=== PATIENT | male | born 1970 | race Caucasian/White ===

== ENCOUNTER 2019-07-11 16:07 | Inpatient (IN) ==
[2019-07-11] MEDS ORDERED: KETOROLAC 30 MG/ML VIAL IV STA (16:25)
[2019-07-11] MEDS ORDERED: ACETAMINOPHEN 325 MG TAB PO STA (16:25)
[2019-07-11] MEDS ORDERED: MoRPHine SULFATE 4 MG/ML 1 ML CARP\\VIAL IV STA (16:25)
[2019-07-11] MEDS ORDERED: SODIUM CHLORIDE 0.9% 1000ML 1,000 ML IV SCH (16:30)
[2019-07-11 16:50] LABS: Basophils # (auto) 0.03 K/uL (0-0.2); Basophils % (auto) 0.4 %; Eosinophils % (auto) 1.3 %; Hematocrit (blood only) 42.7 % (42-52); Immature Granulocytes # (auto) 0.01 K/uL (0.00-0.02); Immature Granulocytes % (auto) 0.1 %; Lymphocytes # (auto) 1.68 K/uL (1.2-3.4); Lymphocytes % (auto) 22.3 %; Mean Corpuscular Hemoglobin 33.1 pg (25-34); Mean Corpuscular Hgb Conc 35.1 g/dL (32-36); Mean Corpuscular Volume 94.3 fL (80-100); Mean Platelet Volume 9.9 fL (7.4-10.4); Monocytes # (auto) 0.46 K/uL (0.11-0.59); Monocytes % (auto) 6.1 %; Neutrophils # (auto) 5.25 K/uL (1.4-6.5); Neutrophils % (auto) 69.8 %; Platelet Count 230 K/uL (130-400); RDW Coefficient of Variation 13.1 % (11.5-14.5); RDW Standard Deviation 45.4 fL (36.4-46.3); Red Blood Count 4.53 M/uL (4.7-6.1); White Blood Count 7.53 K/uL (4.8-10.8)
[2019-07-11 17:07] LABS: iSTAT Creatinine 0.8 mg/dl (0.6-1.3); iSTAT Hemoglobin 14.6 g/dl (14.0-18.0); iSTAT Ionized Calcium 1.15 mmol/l (1.12-1.32); iSTAT Potassium 3.8 mmol/L (3.3-5.0)
[2019-07-11 17:09] LABS: BUN Creatinine Ratio 13.9 (10-20); Calcium 8.8 mg/dl (8.5-10.1); Creatinine Clr Calc Pharmacy 121.1 ml/min; Est GFR (African American) 119.7; Est GFR (Non-African American) 103.3; Potassium 3.8 mmol/L (3.5-5.1)
[2019-07-11] MEDS ORDERED: IOVERSOL 100ml IV PRN (17:36)
[2019-07-11] MEDS ORDERED: fentaNYL citrate 100 MCG/2 ML VIAL IV STA (17:49)
[2019-07-11] MEDS ORDERED: OXYCODONE HCL IR 5 MG TAB (IMMEDIATE RELEASE) PO STA (17:49)
--- NOTE | 2019-07-11 17:53 | CT Scan Report ---
CT soft tissue neck wo/w con CLINICAL HISTORY: 49 years-old Male presenting with L sided parotid/ear mass; left ear swelling, site of interest marked. TECHNIQUE: Multidetector CT of the neck was performed before and after the administration of intraven ous contrast. IV contrast: 90 mL of Optiray 320. One or more dose lowering techniques were used consi stent with the principles of ALARA (as low as reasonably achievable), including automatic exposure co ntrol, mA or kV adjustment to individual patient size, and/or use of iterative reconstruction. COMPARISON: Correlation made to MR of the cervical spine from [address] head from 02/21/2018. CT DOSE (mGy.cm): The estimated cumulative dose is 710.40 mGycm. 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 Anterior cervical fusion hardware. At the site of clinical concern, vague region of swelling within the posterior aspect of the left par ietal gland which is heterogeneously hypoechoic and measures approximately 2 cm (series 5 image 76) t his region and demonstrates enhancement and has a multicystic appearance though poorly delineated. Th ere is also a deeper component measuring 1.4 cm which has a slightly more hypodense appearance and ma y potentially emanate from the posterior aspect of the deep lobe of the left parotid gland tracking t owards the skull base (series 5 image 64). Presumably this is contiguous with the more superficial ab normality by thin tract. Trace fluid is noted within the left mastoid air cells, which appear eroded at the interface with the deep portion of the multicystic abnormality. There is also a lucent lesion associated along the deep aspect of the left mastoid air cells measuring 2.3 cm in diameter (series 3 image 55). This demonstrates does not demonstrate convincing enhancement and correlates with a prior dominant mastoid air cell on head CT from 2018. Borderline enlargement of a left cervical lymph node at the level of the hyoid bone measuring 11 mm a nd axial long axis. Several additional smaller bilateral cervical lymph nodes are noted, nonspecific. Mild mucosal thickening in the right maxillary sinus. Orbits normal. Limited intracranial evaluation within normal limits. Aerodigestive tract patent without suspicious nodular enhancement or effacement . Vasculature grossly patent. Trace atherosclerosis. Lung apices clear. ACDF of C6-7. Lucent lesion i n the T3 vertebral body (series 5 image 120), new from prior exam. This erodes the posterior cortex o f the vertebral body. IMPRESSION: 1. 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 Multic ystic appearing mass in the left parotid gland with extension into the skull base and subtle erosion at the mastoid segment of the left temporal bone. Presumably partial opacification of left mastoid ai r cells relates to osseous erosion. Differential considerations include adenoid cystic carcinoma, muc osal epidermoid carcinoma, or malignant mixed salivary gland tumor, or metastatic lesion. 2. Erosive lytic lesion in the C3 vertebral body highly concerning for osseous metastatic disease. 3. PET/CT should be considered for further evaluation as well as oncologic referral. Ultrasound-guid ed fine-needle aspiration of the left parotid gland will likely be necessary on a nonurgent outpatien t basis after oncologic consultation. 4. Borderline suspicious left cervical lymph node at the level of the hyoid bone. The report will be called/faxed according to standard departmental protocol. ACT 112: Negative or not required by law. Electronically signed by: Chandler Walter M.D. 07/11/2019 5:52 PM
--- NOTE | 2019-07-11 17:57 | Emergency Department Note ---
Entered by Roberto Best acting as a scribe for History of Present Illness General Chief complaint: Facial Injury/Pain Stated complaint: HEADACHE Time Seen by Provider: 07/11/19 16:15 Source: patient Limitations: no limitations History of Present Illness Onset (ago): month(s) 6 Location: neck Pain Consistency: + constant Maximum Pain Intensity: 9 Quality: + constant Associated symptoms: + other (lost hearing in left ear) The patient is a 49 year-old white male w/ PMHx Frederick's Palsy, Lyme disease, who presents to the ED w/ CC of left-sided neck pain beginning 6 months ago. The patient states his neck swelling has gotten worse in the past week. The patient states he was scheduled for a CT scan tomorrow. He states his neck pain is a lot worse today. He states he lost his hearing in his left ear about a week ago. He notes he has constant pain, but states the severity of the pain goes up and down. He states nothing makes the pain better. He notes he smokes. He states he has been taking medications at home that were prescribed, but states it has not helped. He states he has been getting blood out of his left ear for the past 4 days. Home Medications Home Medications Medication Instructions Recorded Confirmed Type ciprofloxacin 0.3 %-dexamethasone 4 drops OT BID #7.5 ml 07/03/19 07/11/19 Rx 0.1 % ear drops,suspension meloxicam 15 mg PO DAILY 07/11/19 07/11/19 History ondansetron HCl [Zofran] 4 mg PO TID PRN 5 Days #15 tab 07/11/19 Rx oxycodone [Roxicodone] 5 mg PO Q8H PRN #15 tab 07/11/19 Rx Allergies Allergy/AdvReac Type Severity Reaction Status Date / Time varenicline Allergy Intermediate RASH Verified 07/11/19 16:32 Past Med/Surg History Medical History Patient denies significant medical history Smoker Surgical History History of incision and drainage RIGHT BUTTOCK Hx of appendectomy Hx of cervical discectomy Hx of hernia repair umbical Hx of shoulder surgery right and left Family History Mother Family history of diabetes mellitus Other FHx: heart disease No family history of bleeding disorder Social History Preferred Language: Somali Communication Ability: Effective Drug Abuse Treatment Specialist Required: No Beliefs That Will Affect Care: None Current Living Situation: Family Current Living Situation Comment: dtr and salvatore Feels Safe at Home: Yes Smoking Status: Current every day smoker Tobacco Type: cigarettes ; Age Started Using Tobacco: 18 ; packs per day: 1 ; Cigarettes Per Day: 21 ; Second Hand Exposure: No ; Tobacco Cessation Education Requested by Patient: No Hx Alcohol Use: Yes Alcohol Intake Frequency: Weekly Hx Substance Use: Yes substance use type: does not use Review of Systems See HPI for pertinent positives & negatives. and A total of 10 systems reviewed and were otherwise negative Physical Exam Vital Signs Vital Signs - 24 hr 07/11/19 16:09 07/11/19 17:44 07/11/19 18:00 Temperature 36.6 C Temperature Source Oral Pulse Rate 99 H 84 71 Pulse Rate [Apical] Pulse Rate from SpO2 Sensor 72 Pulse Strength Normal Respiratory Rate 18 20 16 Respiratory Effort / Characteristics Non-Labored Spontaneous Respiratory Depth Normal Respiratory Pattern Blood Pressure 175/116 H 176/120 H Blood Pressure [Right Arm] Blood Pressure Mean 135 129 Blood Pressure Mean [Right Arm] Blood Pressure Position Sitting Pulse Oximetry 99 100 94 Oxygen Delivery Method Room Air Room Air Room Air Sepsis Recent Fever Within 48 Hours No Sepsis New/Unexplained Change in Mental Status No Sepsis Action Taken by Nursing No Action Required 07/11/19 18:18 07/11/19 18:25 07/11/19 18:30 Temperature Temperature Source Pulse Rate 89 79 Pulse Rate [Apical] 84 Pulse Rate from SpO2 Sensor 86 79 Pulse Strength Respiratory Rate 20 20 18 Respiratory Effort / Characteristics Non-Labored Spontaneous Respiratory Depth Normal Respiratory Pattern Regular Blood Pressure 176/114 H Blood Pressure [Right Arm] 176/120 H Blood Pressure Mean 122 Blood Pressure Mean [Right Arm] 138 Blood Pressure Position Pulse Oximetry 96 98 99 Oxygen Delivery Method Room Air Room Air Sepsis Recent Fever Within 48 Hours Sepsis New/Unexplained Change in Mental Status Sepsis Action Taken by Nursing 07/11/19 19:00 07/11/19 19:30 07/11/19 20:00 Temperature Temperature Source Pulse Rate 85 86 67 Pulse Rate [Apical] Pulse Rate from SpO2 Sensor 85 86 67 Pulse Strength Respiratory Rate 31 H 14 10 L Respiratory Effort / Characteristics Respiratory Depth Respiratory Pattern Blood Pressure 173/124 H 188/126 H 171/107 H Blood Pressure [Right Arm] Blood Pressure Mean 137 139 120 Blood Pressure Mean [Right Arm] Blood Pressure Position Pulse Oximetry 100 99 95 Oxygen Delivery Method Room Air Room Air Room Air Sepsis Recent Fever Within 48 Hours Sepsis New/Unexplained Change in Mental Status Sepsis Action Taken by Nursing GENERAL: Uncomfortable in appearance, well nourished, NAD, non-toxic. EYE EXAM: Normal conjunctiva. PERRL, no anisocoria and EOM's grossly intact w/o pain. OROPHARYNX: Moist mucus membranes. Poor dentition. No exudate, posterior pharynx is clear, no tonsillar/uvular deviation or swelling. EARS: Likely perforated tympanic membrane left side, with possible mass. Right TM slightly retracted but without any erythema or effusion. NECK: Supple, no nuchal rigidity, no adenopathy, non-tender. no signs of meningismus. 4 x 3 cm area of swelling over the left lateral neck. No cellulitic change. No fluctuance. FROM. Good neck extension and flexion. Non-stridulous. No submandibular sublingual or submental swelling. LUNGS: Clear to auscultation. Normal chest wall mechanics. HEART: NSR, no MRG. ABDOMEN: Abdomen soft, non-tender, normo-active bowel sounds, no masses, no rebound or guarding. BACK: No CVA TTP. SKIN: No rashes and no bruising. UPPER EXTREMITIES: Upper extremities are grossly normal. NEURO EXAM: A&O x3, cranial nerves II-XII grossly intact, normal speech, moves all 4 extremities on command w/o issue. Course Course 1617: The patient was evaluated in room C4, and a complete history and physical examination were performed. []: Upon reevaluation, the patient appeared to have improvement of his symptoms. I discussed today's findings with him. He verbalized agreement of the treatment plan. The patient was discharged home. Administered Medications Gabapentin (Neurontin) 300 mg PO TID DANIEL Stop: 08/10/19 21:59 Last Admin: 07/12/19 07:57 Dose: 300 mg Documented by: [id number] Admin: 07/11/19 22:19 Dose: 300 mg Documented by: [id number] Hydromorphone HCl (Dilaudid) 1 mg IV Q1H PRN PRN Reason: Pain Stop: 07/25/19 21:33 Last Admin: 07/12/19 09:31 Dose: 1 mg Documented by: [id number] Miscellaneous (Remove Nicoderm Patch) 1 ea N/A DAILY@[id number] [facility] Stop: 08/11/19 08:58 Last Admin: 07/12/19 07:53 Dose: Not Given Documented by: [id number] Nicotine (Nicoderm Cq) 21 mg TD QAM [facility] Stop: 08/11/19 08:59 Last Admin: 07/12/19 07:54 Dose: Not Given Documented by: [id number] Discontinued Medications Acetaminophen (Tylenol) 650 mg PO NOW STA Stop: 07/11/19 16:26 Last Admin: 07/11/19 17:13 Dose: 650 mg Documented by: [id number] Ciprofloxacin/Dexamethasone (Ciprodex Otic) 4 drops OT BID [facility] Stop: 08/10/19 21:59 Last Admin: 07/12/19 07:57 Dose: 4 drops Documented by: [id number] Admin: 07/11/19 22:19 Dose: 4 drops Documented by: [id number] Fentanyl Citrate (Fentanyl Citrate) 100 mcg IV NOW STA Stop: 07/11/19 17:50 Last Admin: 07/11/19 18:04 Dose: 100 mcg Documented by: [id number] Hydromorphone HCl (Dilaudid) 1 mg IV NOW STA Stop: 07/11/19 18:25 Last Admin: 07/11/19 18:48 Dose: 1 mg Documented by: [id number] Hydromorphone HCl (Dilaudid) 1 mg IV Q15M PRN PRN Reason: Pain Stop: 07/25/19 19:08 Last Admin: 07/11/19 19:42 Dose: 1 mg Documented by: [id number] Hydromorphone HCl (Dilaudid) 1 mg IV Q2H PRN PRN Reason: Pain Stop: 07/25/19 21:33 Last Admin: 07/12/19 07:49 Dose: 1 mg Documented by: [id number] Admin: 07/12/19 05:41 Dose: 1 mg Documented by: [id number] Admin: 07/12/19 03:42 Dose: 1 mg Documented by: [id number] Admin: 07/11/19 23:29 Dose: 1 mg Documented by: [id number] Sodium Chloride (Nss 1000ml) 1,000 mls @ 999 mls/hr IV .Q1H1M DANIEL Stop: 07/11/19 17:30 Last Infusion: 07/11/19 18:17 Dose: 0 mls/hr Documented by: [id number] Admin: 07/11/19 17:09 Dose: 999 mls/hr Documented by: [id number] Ioversol (Optiray 320 100ml) 90 ml IV ONCE PRN PRN Reason: Interaction Checking Stop: 07/15/19 17:35 Last Admin: 07/11/19 17:36 Dose: 90 ml Documented by: [id number] Ketorolac Tromethamine (Toradol) 30 mg IV NOW STA Stop: 07/11/19 16:26 Last Admin: 07/11/19 17:12 Dose: 30 mg Documented by: [id number] Ketorolac Tromethamine (Toradol) 30 mg IV NOW STA Stop: 07/12/19 09:27 Last Admin: 07/12/19 09:31 Dose: 30 mg Documented by: [id number] Morphine Sulfate (Morphine Sulfate) 4 mg IV NOW STA Stop: 07/11/19 16:26 Last Admin: 07/11/19 17:10 Dose: 4 mg Documented by: [id number] Ondansetron HCl (Zofran) 4 mg IV NOW STA Stop: 07/11/19 19:11 Last Admin: 07/11/19 19:42 Dose: 4 mg Documented by: [id number] Oxycodone HCl (Roxicodone Immediate Rel) 5 mg PO NOW STA Stop: 07/11/19 17:50 Last Admin: 07/11/19 18:04 Dose: 5 mg Documented by: [id number] Oxycodone HCl (Roxicodone Immediate Rel 5mg Home Pack) 1 homepack PO UD ONE Stop: 07/11/19 18:25 Last Admin: 07/11/19 18:48 Dose: 1 homepack Documented by: [id number] Medical Decision Making Differential Diagnosis Differential diagnosis includes etiologies such as viral syndrome, tonsillitis, streptococcal pharyngitis, mononucleosis, peritonsillar abscess, retropha ryngeal abscess, otitis, pneumonia, influenza, as well as others were entertained. Medical Records Attestation: I reviewed the patient's medical records. The patient was seen by ENT on 06/29. Patient was pending outpatient scans and fine-needle aspirate. Patient believes that he was supposed to get a scan of the neck but was unsure as to anything else. Home Medications Current Medication List: was personally reviewed by me Laboratory Data Attestation: I reviewed the patient's lab results. Result diagrams: 07/11/19 16:37 07/11/19 16:37 Lab Results 07/11/19 07/11/19 07/11/19 Range/Units 16:37 16:37 16:54 WBC 7.53 (4.8-10.8) K/uL RBC 4.53 L (4.7-6.1) M/uL Hgb 15.0 (14.0-18.0) g/dL POC Hgb 14.6 (14.0-18.0) g/dl Hct 42.7 (42-52) % POC Hct 43 (42-52) % MCV 94.3 (80-100) fL MCH 33.1 (25-34) pg MCHC 35.1 (32-36) g/dL RDW Std Deviation 45.4 (36.4-46.3) fL RDW Coeff of Kylah 13.1 (11.5-14.5) % Plt Count 230 (130-400) K/uL MPV 9.9 (7.4-10.4) fL Immature Gran % (Auto) 0.1 % Neut % (Auto) 69.8 % Lymph % (Auto) 22.3 % Burnett % (Auto) 6.1 % Eos % (Auto) 1.3 % Baso % (Auto) 0.4 % Immature Gran # (Auto) 0.01 (0.00-0.02) K/uL Neut # (Auto) 5.25 (1.4-6.5) K/uL Lymph # (Auto) 1.68 (1.2-3.4) K/uL Burnett # (Auto) 0.46 (0.11-0.59) K/uL Eos # (Auto) 0.10 (0-0.5) K/uL Baso # (Auto) 0.03 (0-0.2) K/uL POC Sodium 137 (135-144) mmol/L Sodium 136 (136-145) mmol/L POC Potassium 3.8 (3.3-5.0) mmol/L Potassium 3.8 (3.5-5.1) mmol/L POC Chloride 101 (101-112) mmol/L Chloride 104 (98-107) mmol/L Carbon Dioxide 26 (21-32) mmol/L POC Total CO2 27 (24-31) mEq/l Anion Gap 6.0 (3-11) POC Anion Gap 13.0 L (16-25) mmol/L POC BUN 12 (7-18) mg/dl BUN 12 (7-18) mg/dl Creatinine 0.86 (0.6-1.4) mg/dl POC Creatinine 0.8 (0.6-1.3) mg/dl Est Cr Clr Drug Dosing 121.1 ml/min Est GFR ( Amer) 119.7 Est GFR (Non-Af Amer) 103.3 BUN/Creatinine Ratio 13.9 (10-20) Glucose 79 (70-99) mg/dl POC Glucose (other) 78 (70-99) mg/dl Calcium 8.8 (8.5-10.1) mg/dl POC Ioniz Calcium Pj 1.15 (1.12-1.32) mmol/l Imaging Data Radiologist's Impression: Radiology results as stated below per my review and the radiologist's interpretation: CT soft tissue neck wo/w con CLINICAL HISTORY: 49 years-old Male presenting with L sided parotid/ear mass; left ear swelling, site of interest marked. TECHNIQUE: Multidetector CT of the neck was performed before and after the administration of intravenous contrast. IV contrast: 90 mL of Optiray 320. One or more dose lowering techniques were used consistent with the principles of ALARA (as low as reasonably achievable), including automatic exposure control, mA or kV adjustment to individual patient size, and/or use of iterative reconstruction. COMPARISON: Correlation made to MR of the cervical spine from [address] head from 02/21/2018. CT DOSE (mGy.cm): The estimated cumulative dose is 710.40 mGycm. 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 Anterior cervical fusion hardware. At the site of clinical concern, vague region of swelling within the posterior aspect of the left parietal gland which is heterogeneously hypoechoic and measures approximately 2 cm (series 5 image 76) this region and demonstrates enhancement and has a multicystic appearance though poorly delineated. There is also a deeper component measuring 1.4 cm which has a slightly more hypodense appearance and may potentially emanate from the posterior aspect of the deep l obe of the left parotid gland tracking towards the skull base (series 5 image 64). Presumably this is contiguous with the more superficial abnormality by thin tract. Trace fluid is noted within the left mastoid air cells, which appear eroded at the interface with the deep portion of the multicystic abnormality. There is also a lucent lesion associated along the deep aspect of the left mastoid air cells measuring 2.3 cm in diameter (series 3 image 55). This demonstrates does not demonstrate convincing enhancement and correlates with a prior dominant mastoid air cell on head CT from 2018. Borderline enlargement of a left cervical lymph node at the level of the hyoid bone measuring 11 mm and axial long axis. Several additional smaller bilateral cervical lymph nodes are noted, nonspecific. Mild mucosal thickening in the right maxillary sinus. Orbits normal. Limited intracranial evaluation within normal limits. Aerodigestive tract patent without suspicious nodular enhancement or effacement. Vasculature grossly patent. Trace atherosclerosis. Lung apices clear. ACDF of C6-7. Lucent lesion in the T3 vertebral body (series 5 image 120), new from prior exam. This erodes the posterior cortex of the vertebral body. IMPRESSION: 1. 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 Multicystic appearing mass in the left parotid gland with extension into the skull base and subtle erosion at the mastoid segment of the left temporal bone. Presumably partial opacification of left mastoid air cells relates to osseous erosion. Differential considerations include adenoid cystic carcinoma, mucosal epidermoid carcinoma, or malignant mixed salivary gland tumor, or metastatic lesion. 2. Erosive lytic lesion in the C3 vertebral body highly concerning for osseous metastatic disease. 3. PET/CT should be considered for further evaluation as well as oncologic referral. Ultrasound-guided fine-needle aspiration of the left parotid gland will likely be necessary on a nonurgent outpatient basis after oncologic consultation. 4. Borderline suspicious left cervical lymph node at the level of the hyoid bone. The report will be called/faxed according to standard departmental protocol. ACT 112: Negative or not required by law. Electronically signed by: Chandler Walter M.D. 07/11/2019 5:52 PM Dictated: 07/11/[id number] Transcribed: 07/11/[id number] ECG Data Attestation: I personally reviewed and interpreted this ECG as follows: Indication: + other (neck pain; borderline tachycardia) Rate (beats per minute): 80 Rhythm: + normal sinus ECG Intervals/blocks: + Normal QRS, + Normal QT and + Normal LA ECG [place]: + Normal ECG ST segments: + Normal ST segments Change: no significant change (02/21/19) Blood Pressure Blood Pressure Findings: Elevated blood pressure Blood Pressure Disposition: Referred to patients primary care provider MDM Narrative The patient is a 49 year-old white male w/ PMHx Frederick's Palsy, Lyme disease, who presents to the ED w/ CC of left-sided neck pain beginning 6 months ago. Continuous Cardiac Monitoring: An order was placed for continuous cardiac monitoring. The monitor shows a rate of 99 with a sinus rhythm. Patient was seen and evaluated the bedside. The patient was presented with concern for worsening left-sided neck pain. The patient had been seen in the outpatient setting by ENT due to concern for a parotid and auditory canal mass. Patient does have some swelling but without any cellulitic change or fluctuance over the area. Patient is a smoker. No obvious signs of odontogenic infection. No submental, submandibular or sublingual swelling. Non-stridulous with good range of motion of the neck and no signs of meningismus. Patient did a blood work completed which is unremarkable. CT of the soft tissue neck was obtained. 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 I did briefly speak with 1 of the on-call radiologist in order to discuss how things would p roceed in terms of a fine-needle aspirate. Patient is already scheduled for fine-needle aspirate in terms of order but unsure as to the timeframe as I cannot see when the order is to go through. Only after I got the scans that I noticed that the patient did have additional specific CT scans but given his current findings I believe this is a reasonable start. I did have the embedded case manager talk to the patient in order to help arrange outpatient ENT and oncology follow-up for as soon as possible given his findings. Radiology stated that typically prior to fine-needle aspirate they are referred to ENT or oncology and they will help guide treatment in terms of obtaining a body scan and then fur ther discussion will be about fine-needle aspirate thereafter. The patient again does not have any signs concerning for acute airway issue and the patient is tolerating secretions. The patient's acute problem has been somewhat chronic as he has had greater than 6 months of symptoms but only acutely worsened over the last several days. Patient's EKG and blood work is unremarkable. The patient's pain is improved. The patient will have appointments attempted to be scheduled with ENT and oncology for prompt follow-up. Patient is in agreement plan of care. I counseled patient on smoking cessation for 3 minutes. Treatment options discussed and resources provided. Patient was not receptive. Discharge the patient stated that he still had unbearable pain. The patient has received fentanyl, morphine, Dilaudid without relief in his discomfort. The patient likely does have metastatic malignancy of the head and neck. Medicine service admitted the patient for further pain control and additional work-up. Impression & Plan Malignant tumor of salivary gland, Bone metastases, Encounter for smoking cessation counseling Discharge Plan Visit Data *Final* Discharge Date/Time: 07/11/19 21:18 Chief Complaint: Facial Injury/Pain Stated Complaint: HEADACHE ED Provider: Guanakito Hernandez Discharge Problem: Malignant tumor of salivary gland, Bone metastases, Encounter for smoking cessation counseling Patient Disposition: Admitted As Inpatient Condition: Fair Discharge Instructions Interventions: ED Discharge Assessment Last Done: 07/11/19 21:18 The scribe's documentation has been prepared under my direction and personally reviewed by me in its entirety. I confirm that the note above accurately reflects all work, treatment, procedures, and medical decision making performed by me.
[2019-07-11] MEDS ORDERED: OXYCODONE IR HOME PACK PO ONE (18:24)
[2019-07-11] MEDS ORDERED: HYDROmorphone INJ 1 MG/ML SYRINGE IV STA (18:24)
[2019-07-11] MEDS ORDERED: HYDROmorphone INJ 1 MG/ML SYRINGE IV PRN (19:09)
[2019-07-11] MEDS ORDERED: ONDANSETRON INJ 2 MG/ML 2 ML VIAL IV STA (19:10)
--- NOTE | 2019-07-11 19:34 | History & Physical Report ---
Date of Service July 11, 2019 Assessment & Plan (1) Malignant tumor of salivary gland: Steve Rayo is a 49 year old man who has had progressive symptoms concerning for head and neck cancer. He is here today for extreme pain that started last last night Pain Likely secondary to growing mass which appears to be a metastatic cancer with primary tumor in left parotid gland Patient has been seen by ENT in the outpatient setting who recommended tylenol for pain control which was not enough so he presented to emergency department. Pain likely secondary to compression of local structures as well as trigeminal nerve compression, will treat with dilaudid 1 mg q2h for pain control, 10 mg Decadron to try to decrease swelling and pressure, and gabapentin to try and help with any component of nerve irritation If unable to get adequate pain control with bolus dilaudid may consider transitioning to [facility] Head and Neck Cancer suspected Evaluated by ENT two weeks ago who were concnerned for malignancy based on parotid mass and auditory meatus mass and ordered CT and fine needle aspiration for diagnostic purposes Oncology consulted for pain relief recommendations and to see if any further inpatient management is warranted Decadron to try and decrease local compression from tumor burden and inflammation Smoking Active smoker 30 pack year history Will try to educate on tobacco cessation will order nicotine patch ALcohol use Drinks up to seven drinks a night almost every night Will try to counselor dormitory on alcohol cessation Will order Withdrawal protocol DVT PPx: Lovenox F/E/N: Regular Diet Full code Dispo: Med Surg for pain control (2) Bone metastases: (3) Encounter for smoking cessation counseling: (4) Mass of left parotid gland: History of Present Illness Primary Care Provider: Ceasar Lilly MD Mr. 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 and noticed a lump on the side of his face near his jaw. His Frederick's palsy persisted and he started to have some discomfort. Two weeks ago he went to the ENT who believed he had a mass and he needed to have scan and biopsy. He, is here today for extreme pain that started around 1:30 am this morning woke him up from a sleep. Patient is having the worst pain of his life through his head. He has an obstructed left nares and has been having bleeding from his left ear since ENT looked at it. Hypertension in the past, not on high blood pressure medication, uses medical marijuana for sleep and appetite. Smoker, just over a pack a day started at about 18. Lives with youngest daughter and two children. Has 6-7 drinks a night about seven nights a week. 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 secondary to these. Dr. Lilly is primary doctor. Allergies Allergy/AdvReac Type Severity Reaction Status Date / Time varenicline Allergy Intermediate RASH Verified 07/11/19 16:32 Home Medications Home Medications Medication Instructions Recorded Confirmed Type ciprofloxacin 0.3 %-dexamethasone 4 drops OT BID #7.5 ml 07/03/19 07/11/19 Rx 0.1 % ear drops,suspension meloxicam 15 mg PO DAILY 07/11/19 07/11/19 History ondansetron HCl [Zofran] 4 mg PO TID PRN 5 Days #15 tab 07/11/19 Rx oxycodone [Roxicodone] 5 mg PO Q8H PRN #15 tab 07/11/19 Rx Past Med/Surg History Medical History Patient denies significant medical history Smoker Surgical History History of incision and drainage RIGHT BUTTOCK Hx of appendectomy Hx of cervical discectomy Hx of hernia repair umbical Hx of shoulder surgery right and left Family History Mother Family history of diabetes mellitus Other FHx: heart disease No family history of bleeding disorder Social History Preferred Language: Setswana Communication Ability: Effective 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 Beliefs That Will Affect Care: None Current Living Situation: Family Current Living Situation Comment: dtr and grandkids Feels Safe at Home: Yes Smoking Status: Current every day smoker Tobacco Type: cigarettes ; Age Started Using Tobacco: 18 ; packs per day: 1 ; Cigarettes Per Day: 21 ; Second Hand Exposure: No ; Tobacco Cessation Education Requested by Patient: No Hx Alcohol Use: Yes Alcohol Intake Frequency: Weekly Hx Substance Use: Yes substance use type: does not use Review of Systems Constitutional: + fatigue, + weight loss and + insomnia; no fever and no chills Eyes: + dry eyes and + worsening vision Ear, Nose, Mouth, Throat: + ear pain, + ear discharge (Bloody discharge from left ear since examination), + nasal congestion (Left nares constantly obstructed), + nasal discharge, + facial pain and + neck lump Respiratory: no cough, no dyspnea and no wheezing Cardiovascular: no chest pain, no dyspnea, no palpitations and no edema Gastrointestinal: no abdominal pain, no nausea, no vomiting, no constipation and no diarrhea/loose stools Genitourinary: no dysuria Integumentary: no lesions Physical Exam Physical Exam: Constitutional: Mr Steve Rayo is a 49 year old man appearing stated age in obvious acute distress secondary to head/face pain. Every few minutes grabbing at his jaw ear area on the left. Eyes: EOMMI patient with some facial nerve palsy, unable to close left eye completely ENMT: Erythematous Left TM with bloody discharge present, nares appearing normal, dentition carious, mass palpable around left parotid region by posterior mandible on left, this area is tender to palpation Respiratory: Lungs clear to auscultation bilaterally, no increased work of breathing, no wheezing, stridor Cardiovascular: Regular rate regular rhythm heart sounds dual on auscultation, peripheral pulses intact, no lower limb edema GI: Abdomen soft nontender Neuro: Mild left fifth CN paralysis on exam, No other neurologic deficit detect II-Iv and -XII assessed and intact with possible exception of some increased pain in distribution of trigeminal nerve. Results & Data Vital Signs (Past 12 Hours) Vital Signs Temp Pulse Pulse Resp BP BP Pulse Ox 07/11/19 18:18 84 20 176/120 H 96 07/11/19 17:44 84 20 100 07/11/19 16:09 36.6 C 99 H 18 175/116 H 99 Supervising Physician Co-Signing Physician Notes Patient seen and examined, chart reviewed, case discussed with Dr. Knox and I agree with his assessment and plan as documented above. Briefly, patient is a 49-year-old male with concern for salivary gland malignancy of t he left parotid. He presents today in extreme pain requiring multiple doses of IV pain medication On physical exam he is afebrile, hemodynamically stable, in mild distress secondary to discomfort. Pain comes and shooting waves Skinwarm, no rash HEENTnormocephalic/atraumatic, pupils equal react to light, extraocular muscles intact, moist mucous membranes, neck supple, no JVD, fullness of the left preauricular region with extreme tenderness to palpation Heart+ S1/S2, regular, no murmurs/rubs/gallops LungsCTA Abdomensoft, nontender, nondistended Extremitieswarm, well-perfused Labs and images reviewed. CT of the soft tissue of the neck highly concerning for malignant salivary gland tumor of the left parotid. Multicystic appearing mass in the left parotid gland with extension to the skull base and subtle erosion at the mastoid segment of the left temporal bone. Partial opacification of the left mastoid air cells most likely secondary to osseous erosion. Erosive lytic lesion in the C3 vertebral body concerning for metastatic disease. Assessment/[id number] male presenting with severe left facial pain thought to be secondary to metastatic head/neck cancer, presumably from the parotid gland. No formal diagnosis of yet. Pain control with Decadron, gabapentin, Dilaudid Oncology consultation appreciated regarding further inpatient work-up Remainder of plan as above
[2019-07-11] MEDS ORDERED: NALOXONE HCL 0.4 MG/1 ML VIAL/CARP IV PRN (20:20)
[2019-07-11] MEDS ORDERED: POLYETHYLENE (MIRALAX) 17 GM PACK PO PRN (21:34)
[2019-07-11] MEDS ORDERED: LORazepam 1 MG TAB PO PRN (21:34)
[2019-07-11] MEDS ORDERED: ONDANSETRON INJ 2 MG/ML 2 ML VIAL IV PRN (21:34)
[2019-07-11] MEDS: GABAPENTIN 300 MG CAP PO SCH (22:19)
[2019-07-11] MEDS: CIPRO 0.3%/DEXAMETHASONE 0.1% OTIC SUSP 7.5ML OT SCH (22:19)
[2019-07-11] MEDS: HYDROmorphone INJ 1 MG/ML SYRINGE IV PRN (23:29)
[2019-07-12] MEDS: HYDROmorphone INJ 1 MG/ML SYRINGE IV PRN ×7 (03:42→23:15)
--- NOTE | 2019-07-12 05:02 | Billing Data ---
Date of Service July 12, 2019 Coding Level of Care Code 18473 OBS Care - Level 2
[2019-07-12] MEDS: NICOTINE 21 MG/24 HR TDSY TD SCH (07:54)
[2019-07-12] MEDS: GABAPENTIN 300 MG CAP PO SCH ×3 (07:57→20:24)
[2019-07-12] MEDS: CIPRO 0.3%/DEXAMETHASONE 0.1% OTIC SUSP 7.5ML OT SCH ×3 (07:57→20:23)
[2019-07-12] MEDS ORDERED: KETOROLAC 30 MG/ML VIAL IV STA (09:26)
[2019-07-12] MEDS ORDERED: OXYMETAZOLINE 0.05% 30 ML BTL ONE (10:38)
--- NOTE | 2019-07-12 11:31 | Medical Student Progress Note ---
Date of Service July 12, 2019 Assessment & Plan (1) Mass of left parotid gland: Steve Rayo is a 49-year-old male with a 6 month history of progressive left-sided ear pain and facial swelling who presented to the emergency department on 07/11/19 secondary to acute worsening of his ear pain. His presentation and initial head and neck CT findings are concerning for a malignant etiology. Left Parotid Mass: -Evaluated by ENT two weeks ago, which raised concern for malignancy. ENT ordered head/neck CT and FNA of the left parotid at that time, which was scheduled for 07/12/19. However, he was unable to manage his pain as an outpatient, which led to inpatient admission on 07/11/19. -Head and neck CT performed in emergency revealed: * findings concerning for malignant salivary gland tumor of the left parotid * multicystic mass with extension into the skull base and subtle erosion of the left temporal bone * erosive lytic lesion of C3 vertebral body concerning for bone metastasis * suspicious left cervical lymph node at the level of the hyoid bone -Pathology consulted regarding FNA of the left parotid -Once tissue is obtained and pain is controlled, oncology to make arrangements to see him in the office to discuss therapeutic approach -[facility] consult: CT simulation tomorrow for treatment planning with the anticipation of future radiation therapy in the outpatient setting. If the patient does have distant metastatic disease confirmed on PET scan, recommend palliative external beam radiation therapy followed by systemic therapy to the left parotid mass and C2 vertebral body. 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 The patient has severe left ear pain with radiation to the left neck, which was the primary reason for his original presentation to the emergency department. -Continue Cirpofloxacin/Dexamethasone 4 drops BID in left ear -Continue Gabapentin 300 mg PO TID for management of neuropathic pain -Continue Hydromorphone 1 mg Q1H PRN. Increased from Q2H secondary to inadequate pain control. Will attempt to switch to oral regimen tomorrow in anticipation of d/c -Continue Acetaminophen 650 mg Q4H PRN -Toradol 30mg q6h prn Tobacco Smoking History The patient has a 30 pack-year history and currently smokes 1-2 packs per day. -Continue Nicotine patch 21 mg -Provide education and encouragement regarding smoking cessation Alcohol use The patient states that he currently consumes 5-6 beers per day on average. -Follow withdrawal protocol * Lorazepam 1 mg PRN ordered. No doses needed and patient has not exhibited any signs of withdrawal Code status: Full Code DVT Prophylaxis: Enoxaparin FEN: Regular diet Disposition: Med Surg for pain control Supervising Attestation Medical Student Supervision Note: I independently interviewed and examined the patient and verified the flores history and physical, reviewed labs and image studies, discussed the case with the medical student Cordell Felipe and the resident Dr. Kelvin Best and agree with the findings and care plan. Subjective Steve Rayo is a 49-year-old male with a past medical history of Frederick's Palsy and Lyme disease who presented to the emergency department on 07/11/19 secondary to worsening left-sided facial pain and swelling. He states that his left-sided facial symptoms began when he developed Frederick's palsy 6 months ago. At that time, he tested positive for Lyme disease and was treated accordingly. Since then, he says that he has had gradually worsening left ear pain and progressive enlargement of the left parotid gland. Two weeks ago, he was seen by ENT due to acute left-sided hearing loss. He says that ENT pulled something out of his ear at that time, which has caused daily bleeding since then. Around 1:30 AM on Wednesday, he developed acute worsening of the left ear pain that awoke him from sleep. He then tried to call the office of his ENT that morning but he was unable to be seen. He says that the pain became unbearable during the day so he went to the emergency room on Wednesday afternoon. Today, Steve says that he is still in significant pain. The pain is mainly in his left ear and radiates down the left side of his neck. He says that he has developed left facial droop this morning and is unable to close his left eye. He also endorses blurriness in his left eye and loss of taste on the left side of his tongue, as well as a continuous ocean-like sound in his left ear. He says that the area overlying the left parotid gland is very tender. He expresses frustration with his current level of pain control. Review of Systems Constitutional: + weight loss; no fever, no chills and no fatigue Eyes: as per Subjective / HPI Ear, Nose, Mouth, Throat: as per Subjective / HPI Respiratory: no cough and no dyspnea Cardiovascular: no chest pain and no dyspnea Gastrointestinal: no abdominal pain, no nausea, no vomiting and no change in stools Genitourinary: no dysuria and no difficulty urinating Musculoskeletal: + neck pain Physical Exam Constitutional: WD/WN, vitals as above Eyes: PERRL, conjunctivae normal, anicteric sclerae ENMT: Ears: + hearing impairment (Left ear) and + TM abnormality (Perforated left TM) Nose: + face asymmetric Mouth: + dry oral mucous membranes Neck: + neck tender (Left-sided tenderness) Respiratory: normal respiratory effort, lungs clear to auscultation Cardiovascular: RRR, no murmur, no edema Gastrointestinal (Abdomen): normal bowel sounds, soft, nontender, no hepatosplenomegaly Skin: no rashes, warm and dry Neurologic: Cranial Nerves: PERRL, EOM intact bilaterally, able to rotate head bilaterally and able to elevate shoulders bilaterally; + abnormal facial strength (Loss of left nasolabial fold. Unable to close left eye) and + hearing impairment Psychiatric: Orientation: alert and oriented x 3 Mood: + irritable mood Results & Data ([facility]) Vital Signs (Past 12 Hours) Vital Signs Temp Pulse Pulse Resp BP BP Pulse Ox 07/12/19 11:11 185/121 H 07/12/19 07:25 36.4 C L 69 15 188/106 H 98 07/12/19 03:44 161/99 H 07/12/19 03:37 36.6 C 77 16 166/105 H 97 07/11/19 23:24 36.8 C 75 16 162/95 H 98 Laboratory Results Hgb 15.0, Sodium 136, Potassium 3.8, Calcium 8.8 BUN 12, Cr 0.86 Folate 11.24 Diagnostic Findings Soft tissue neck CT: -highly concerning for malignant salivary gland tumor of left parotid -multicystic mass with extension into the skull base and subtle erosion at the mastoid segment of the left temporal bone -erosive lytic lesion at C3 vertebral body concerning for bone metastasis -Suspicious left cervical lymph node at level of the hyoid bone Resident Activity Tracking Resident Involvement: Resident Care Provided Care Provided: Adult Hospital Medicine
[2019-07-12] MEDS ORDERED: HydrALAZINE HCL 20 MG/ML VIAL IV STA (11:59)
--- NOTE | 2019-07-12 12:08 | Consultation Report ---
DATE OF CONSULTATION: 07/12/2019 REASON FOR CONSULTATION: Malignant tumor left salivary gland. HISTORY OF PRESENT ILLNESS: Mr. Rayo is a very pleasant 49-year-old gentleman who presented to [facility] with left sided facial pain that has been present for several weeks. The patient relates while hunting last , he had developed a facial drooping. He was seen by a physician and the presumptive diagnosis of Frederick's palsy was made. Once his facial drooping improved, he continued to experience left sided otalgia. He established patient-doctor relationship with Dr. Conrad from ENT and was formally examined, thought to possibly have mass and was pending radiographs when he presented to the Emergency Room with severe lancinating left-sided pain. He is now at the point where his salivation and taste have been altered on the left side. His facial droop is notable and has completely lost hearing on the left side. Upon presentation to the Emergency Room, a CT scan of the neck revealed multicystic appearing mass in the left parotid gland with extension into the skull base. There is also an erosive lytic lesion involving C3 highly concerning for osseous metastatic disease. PET scan is recommended and will be scheduled once Mr. Rayo is discharged. He is now on the hospitalist service. Pain is reasonably well controlled. We will ask ENT to obtain tissue diagnosis and radiation oncology to get involved as it appears this tumor is probably not resectable and he will receive a combination of chemoradiation therapy. Perhaps concurrently or sequentially. PAST MEDICAL HISTORY: Essentially negative. PAST SURGICAL HISTORY: I and D of the right buttock cyst, appendectomy, cervical discectomy, umbilical hernia repair and right and left shoulder surgeries. CURRENT MEDICATIONS: Include oxycodone 5 mg p.o. q. 8 hours p.r.n., Zofran 4 mg p.o. t.i.d., meloxicam 15 mg p.o. daily and ciprofloxacin/dexamethasone otic drops 4 drops in affected ear b.i.d. ALLERGIES: HE IS ALLERGIC TO VARENICLINE. FAMILY HISTORY: Mother of CHF. Grandfather from brain cancer. 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 He is for the most part daily alcohol consumer. He is a pack per day smoker for many years. REVIEW OF SYSTEMS: CONSTITUTIONALLY: Most notably for facial drooping, left sided otalgia and hypersalivation on the left. He has maintained his weight and appetite. He denies fevers, chills or sweats. SKIN: No rashes or lesions. No history of dermatoses. HEENT: Again, a left sided facial pain mostly no headaches per se. Denies any acute visual disturbance. He has lost hearing in the left side. He is able to swallow. Denies sore throat. LYMPH: No history of lymphoproliferative disease. CARDIAC: No history of coronary artery disease, no angina or palpitations. PULMONARY: Negative for COPD. No shortness of breath, dyspnea or orthopnea. No cough or hemoptysis. GASTROINTESTINAL: Negative for abdominal pain, nausea, vomiting, diarrhea or constipation, hematochezia or melena stools. GENITOURINARY: No hematuria, dysuria or urinary incontinence. PSYCHIATRIC: Negative for anxiety, depression or psychoses. ENDOCRINE: Negative for diabetes or thyroid disease. NEUROLOGIC: Recent history of Frederick's palsy. No history of migraine headaches, stroke or seizure disorder. HEMATOLOGIC: Negative for anemia, thrombophilia or bleeding diathesis. PHYSICAL EXAMINATION: GENERAL: Very pleasant, somewhat thin 49-year-old gentleman, awake, alert and appropriate, in no acute distress. VITAL SIGNS: Temperature 36.4, pulse 69, respiratory rate 16, blood pressure 188/106. SKIN: Warm, dry, noncyanotic without petechia, rash or ecchymosis. HEENT: Enlarging mass in the periauricular region of the left ear firm and tender to palpation would estimates at least 3-4 cm in circumference. Head is otherwise atraumatic, normocephalic. Eyes: PERRLA, EOMI. Sclerae nonicteric. Nares are patent without rhinorrhea or discharge. Throat is clear. NECK: Supple. LYMPHATICS: No palpable lymphadenopathy in the lower cervical, supraclavicular regions. HEART: Regular rate and rhythm. No clicks, rubs, murmurs or gallops. LUNGS: Clear to auscultation bilaterally. ABDOMEN: Soft, nontender, nondistended, without palpable hepatosplenomegaly. EXTREMITIES: Muscular strength and pulses are equal in all 4 quadrants. No clubbing, cyanosis or edema. NEUROLOGICAL: He is awake, alert and oriented x3. Cranial nerve testing not done. Clearly, he has cranial nerve involvement loss of taste, hypersalivation, loss of hearing. LABORATORY DATA: WBC count 7530, hemoglobin 15, platelet count 230,000. Sodium 137, potassium 3.8, chloride 104, BUN 12, creatinine 0.8. IMPRESSION: 1. Left parotid mass. 2. Intractable left facial pain. 3. Left-sided hearing loss. PLAN: I met Steve at bedside this morning. This gentleman has been suffering from the last couple of weeks with a left sided facial pain and hearing loss. He was seen by Dr. Conrad from ENT about 2 weeks ago and there was obvious suspicion based on examination that this gentleman may be suffering from an expanding parotid mass. He was supposed to have radiographic studies on the day he presented to the Emergency Room and intractable pain. Thus, the first order of business is to obtain tissue diagnosis. We would have Dr. Conrad reengage to do so while inpatient. Additionally, asked Dr. Tiffani Best to evaluate the patient as radiation therapy will most likely be incorporated once surgical resectability is determined. I would guess that this lesion is not surgically resectable, however, but we will leave that decision ultimately to Dr. Conrad. Once tissue is obtained and pain is controlled this gentleman could be discharged home. I will make arrangements to see him in the office to discuss therapeutic approach. I would suggest in the short term putting him on longacting opioids with breakthrough short acting opioids. Lastly, please arrange for a PET scan to be done upon discharge. I have nothing further to add. We will continue to follow periodically during his stay, which I anticipate to be quite short. Thank you very much for allowing me to participate in his care.
[2019-07-12] MEDS ORDERED: KETOROLAC 30 MG/ML VIAL IV PRN (12:09)
[2019-07-12] MEDS: lisinopriL 10 MG TAB PO SCH (12:41)
--- NOTE | 2019-07-12 12:55 | Radiation OncologyConsultation ---
Date of Consultation July 12, 2019 Assessment & Plan (1) Mass of left parotid gland: Assessment: Mr. 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 The patient also does have a concerning lytic lesion involving C2 vertebral body. The patient was admitted to the hospital for pain control and further work-up and evaluation. The patient does continue to have left-sided pain which is significant. The patient is being seen by Dr. Garcia from medical oncology who recommends a completion of the staging work-up including completion of the staging work-up and ENT surgical consultation. I am now seeing the patient in consultation to discuss the role of radiation therapy. Recommendation/Plan: 1. Obtain tissue diagnosis. Ultrasound-guided FNA biopsy of left parotid mass is suggested. 2. ENT consultation. Most likely the patient not surgical candidate however ENT input is appreciated for this patient. 3. Completion of staging work-up. PET/CT scan would be helpful in this case given the potential metastatic disease involving C2 vertebral body. 4. Radiation therapy. We will bring the patient down tomorrow for CT simulation for treatment planning with the anticipation of future radiation therapy in the outpatient setting. If the patient does have distant metastatic disease confirmed on PET scan, I would recommend palliative external beam radiation therapy followed by systemic therapy to the left parotid mass and C2 vertebral body. If the patient's scans do not confirm metastatic disease, the patient should be treated with definitive chemotherapy and radiation therapy. 5. Pain management. Continue with pain management protocol as per primary team. 6. We will continue to follow this patient while in the inpatient setting. Please call us with any further questions or concerns. Rationale/Explanation of Treatment: I have explained the indications, alternatives, benefits, risks and side effects of radiation therapy. I have explained the most common side effects including but are not limited to skin erythema, skin break down, hair loss, fibrosis, adhesion development, heart failure and heart disease, esophagitis, esophageal stenosis, bowel obstruction, urinary symptoms, thyroid disorders, mucositis, nausea, vomiting, diarrhea, anemia, fatigue, carotid artery stenosis and development of secondary malignancy. Additionally, patients suffer may have xerostomia, stomatitis, glossitis, dysphagia, aspiration, mandibular osteoradionecrosis, mucocutaneous fistula formation, lymphedema in the neck, pharyngeal edema, mucositis, loss of taste. I have explained the CT simulation process and treatment planning. I explained what to expect before, during and after treatment on a regular basis. The patient understands and would be willing to consent to treatment. The patient had multiple questions which were answered to his full satisfaction. Thank you for allowing us to participate in the care of this patient. This chart was completed in part utilizing [employer] Speech Voice Recognition software. Attempts were made to minimize the grammatical errors, random word insertions, pronoun errors and incomplete sentences. Any formal questions or concerns about the content, text or information contained within the body of this dictation should be directly addressed to the provider for clarification. Tiffani Best MD Department of Radiation Oncology [facility] History of Present Illness Attending Physician: Tawanna Levin MD History of Present Illness 01/2019. Patient begins to notice left facial mass. Initially felt to be related to illness/inflammation and treated with anti-inflammatories and other medications. . CT of head without contrast. Impression: No acute intracranial abnormality. 06/29/2019. ENT consultation. Patient presents with left facial mass and potential Frederick's palsy. Recommendation is for CT of neck and ultrasound-guided FNA of left facial mass. 07/11/2019. Patient presents to emergency room due to significant facial pain. Admitted to hospital for further work-up and evaluation. 07/11/2019. CT of soft tissue neck. IMPRESSION: 1. 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 Multicystic appearing mass in the left parotid gland with extension into the skull base and subtle erosion at the mastoid segment of the left temporal bone. Presumably partial opacification of left mastoid air cells relates to osseous erosion. Differential considerations include adenoid cystic carcinoma, mucosal epidermoid carcinoma, or malignant mixed salivary gland tumor, or metastatic lesion. 2. Erosive lytic lesion in the C3 vertebral body highly concerning for osseous metastatic disease. 3. PET/CT should be considered for further evaluation as well as oncologic referral. Ultrasound-guided fine-needle aspiration of the left parotid gland will likely be necessary on a nonurgent outpatient basis after oncologic consultation. 4. Borderline suspicious left cervical lymph node at the level of the hyoid bone. Allergies Allergy/AdvReac Type Severity Reaction Status Date / Time varenicline Allergy Intermediate RASH Verified 07/11/19 16:32 Home Medications Home Medications Medication Instructions Recorded Confirmed Type ciprofloxacin 0.3 %-dexamethasone 4 drops OT BID #7.5 ml 07/03/19 07/11/19 Rx 0.1 % ear drops,suspension meloxicam 15 mg PO DAILY 07/11/19 07/11/19 History ondansetron HCl [Zofran] 4 mg PO TID PRN 5 Days #15 tab 07/11/19 Rx oxycodone [Roxicodone] 5 mg PO Q8H PRN #15 tab 07/11/19 Rx Patient History Medical History Patient denies significant medical history Smoker Surgical History History of incision and drainage RIGHT BUTTOCK Hx of appendectomy Hx of cervical discectomy Hx of hernia repair umbical Hx of shoulder surgery right and left Family History Mother Family history of diabetes mellitus Other FHx: heart disease No family history of bleeding disorder Social History Preferred Language: Tamazight Communication Ability: Effective Hl7 Developer Required: No Beliefs That Will Affect Care: None Current Living Situation: Family Current Living Situation Comment: dtr and grandkids Feels Safe at Home: Yes Smoking Status: Current every day smoker Tobacco Type: cigarettes ; Age Started Using Tobacco: 18 ; packs per day: 1 ; Cigarettes Per Day: 21 ; Second Hand Exposure: No ; Tobacco Cessation Education Requested by Patient: No Hx Alcohol Use: Yes Alcohol Intake Frequency: Weekly Hx Substance Use: Yes substance use type: does not use Review of Systems Review of Systems: All systems reviewed & are unremarkable except as noted in HPI & below Patient complains of left-sided facial pain which is primarily in the left ear. Additionally, he notes that he is unable to completely close his eye. Additionally, he also notes that his left mouth is drooping. He also notes of a separate pain involving the posterior neck. Physical Exam Constitutional: WD/WN, vitals as above ENMT: Patient unable to completely close left eye. Facial droop noted. Left facial nerve palsy noted. Left preauricular mass is firm hard and fixed with extrinsic compression of the left external auditory canal. No postauricular mass noted. Neck: No cervical lymphadenopathy palpated. Respiratory: normal respiratory effort, lungs clear to auscultation Cardiovascular: RRR, no murmur, no edema Skin: no rashes, warm and dry Neurologic: patellar DTR's 2+ bilat, sensation intact and PERRL, EOMI, accommodation nl, no face palsy, no dysarthria Psychiatric: A+Ox3, euthymic affect Time Spent Attending I spent 45 minutes for this consultation, which included obtaining clinical information, performing a physical exam, recommending a plan of action and answering questions. Greater than 50% of the time spent was direct face to face interaction with the patient.
--- NOTE | 2019-07-12 16:03 | Electrocardiogram Report ---
Test Reason : Blood Pressure : / mmHG Vent. Rate : 080 BPM Atrial Rate : 080 BPM P-R Int : 144 ms QRS Dur : 102 ms QT Int : 388 ms P-R-T Axes : 069 086 068 degrees QTc Int : 447 ms Normal sinus rhythm Normal ECG When compared with ECG of 21-FEB-2019 11:10, No significant change was found Confirmed by Den Nieves ([id number]) on 07/12/2019 4:02:58 PM Referred By: REFERRED SELF Confirmed By:Den Nieves
[2019-07-13] MEDS: HYDROmorphone INJ 1 MG/ML SYRINGE IV PRN (04:46)
[2019-07-13 06:14] LABS: Basophils # (auto) 0.03 K/uL (0-0.2); Basophils % (auto) 0.3 %; Eosinophils # (auto) 0.26 K/uL (0-0.5); Eosinophils % (auto) 2.9 %; Hematocrit (blood only) 44.6 % (42-52); Hemoglobin 15.5 g/dL (14.0-18.0); Immature Granulocytes # (auto) 0.02 K/uL (0.00-0.02); Immature Granulocytes % (auto) 0.2 %; Lymphocytes # (auto) 2.06 K/uL (1.2-3.4); Lymphocytes % (auto) 22.6 %; Mean Corpuscular Hemoglobin 33.3 pg (25-34); Mean Corpuscular Hgb Conc 34.8 g/dL (32-36); Mean Corpuscular Volume 95.7 fL (80-100); Mean Platelet Volume 9.9 fL (7.4-10.4); Monocytes # (auto) 0.91 K/uL (0.11-0.59); Neutrophils # (auto) 5.82 K/uL (1.4-6.5); Platelet Count 229 K/uL (130-400); RDW Coefficient of Variation 13.2 % (11.5-14.5); RDW Standard Deviation 45.6 fL (36.4-46.3); Red Blood Count 4.66 M/uL (4.7-6.1)
[2019-07-13 06:49] LABS: BUN Creatinine Ratio 12.2 (10-20); Calcium 9.3 mg/dl (8.5-10.1); Creatinine Clr Calc Pharmacy 118.3 ml/min; Est GFR (African American) 118.6; Est GFR (Non-African American) 102.3
[2019-07-13] MEDS ORDERED: HYDROCODONE/ACETAMOPHEN 5/325MG TAB PO PRN (06:57)
[2019-07-13] MEDS ORDERED: ACETAMINOPHEN 500 MG TAB ONE (07:44)
[2019-07-13] MEDS: ACETAMINOPHEN 500 MG TAB PO SCH ×3 (07:45→21:08)
[2019-07-13] MEDS: GABAPENTIN 300 MG CAP PO SCH ×3 (07:46→21:08)
[2019-07-13] MEDS: lisinopriL 10 MG TAB PO SCH (07:46)
[2019-07-13] MEDS: CIPRO 0.3%/DEXAMETHASONE 0.1% OTIC SUSP 7.5ML OT SCH ×2 (07:47→21:06)
[2019-07-13] MEDS: NICOTINE 21 MG/24 HR TDSY TD SCH (07:47)
[2019-07-13] MEDS: ARTIFICIAL TEARS OPL SCH ×2 (10:51→21:07)
--- NOTE | 2019-07-13 12:15 | Medical Student Progress Note ---
Date of Service July 13, 2019 Assessment & Plan (1) Mass of left parotid gland: Steve Rayo is a 49-year-old male with a 6 month history of progressive left-sided ear pain and facial swelling who presented to the emergency department on 07/11/19 secondary to acute worsening of his ear pain. His presentation and initial head and neck CT findings are concerning for a malignant etiology. Left Parotid Mass: -Evaluated by ENT two weeks ago, which raised concern for malignancy. ENT ordered head/neck CT and FNA of the left parotid at that time, which was scheduled for 07/12/19. However, he was unable to manage his pain as an outpatient, which led to inpatient admission on 07/11/19. 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 Garcia as an outpatient to discuss therapeutic approach based on biopsy and PET scan findings. If the patient dos has distant metastatic disease confirmed on PET scan, palliative external beam radiation therapy followed by systemic therapy of the left parotid mass and C3 vertebral body is recommended. If the scan does not confirm metastatic disease, definitive chemotherapy and radiation is recommended. 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 Facial Pain: The patient has severe left ear pain with radiation to the left neck, which was the primary reason for his original presentation to the emergency department. Perforated left tympanic membrane and parotid mass are likely both contributing to the patient's pain. -Pain better with current med regimen. -Continue Cirpofloxacin/Dexamethasone 4 drops BID in left ear -Continue Gabapentin 300 mg PO TID for management of neuropathic pain -Oxycodone 5 mg PO Q4H PRN. -Acetaminophen 1000 mg PO TID Left Facial Paralysis The patient has left facial paralysis secondary to the left parotid mass and he is unable to close his left eye. -Prescribed artificial tears 2 drops OPL BID Hypertension The patient's blood pressure has been consistently elevated during admission, ranging from 152-188 systolic and 95-126 diastolic. Although pain and anxiety related to the patient's current presentation are most likely contributing to these readings to some extent, underlying essential hypertension is also present and should be treated pharmacologically. -Started Lisinopril 10 mg PO QAM. Follow up as an outpatient for proper titration to adequate dose. Smoking History The patient has a 30 pack-year history and currently smokes 1-2 packs per day. -Continue Nicotine patch 21 mg -Topic of smoking cessation addressed and patient declines further discussion at this time. Excessive Alcohol use The patient states that he currently consumes 5-6 beers per day on average. -Follow withdrawal protocol * Lorazepam 1 mg PRN ordered. No doses needed and patient has not exhibited any signs of withdrawal. Code status: Full Code DVT Prophylaxis: Enoxaparin FEN: Regular diet Disposition: Plan for discharge following biopsy Supervising Attestation Medical Student Supervision Note: I independently interviewed and examined the patient and verified the flores history and physical, reviewed labs and image studies, discussed the case with the medical student Cordell Felipe and the resident Dr. Kelvin Best and agree with the findings and care plan. Subjective Steve Rayo is a 49-year-old male with a past medical history of Frederick's Palsy and Lyme disease who presented to the emergency department on 07/11/19 secondary to worsening left-sided facial pain and swelling. He states that his left-sided facial symptoms began when he developed Frederick's palsy 6 months ago. At that time, he tested positive for Lyme disease and was treated accordingly. Since then, he says that he has had gradually worsening left ear pain and progressive enlargement of the left parotid gland. Two weeks ago, he was seen by ENT due to acute left-sided hearing loss. He says that ENT pulled something out of his ear at that time, which has caused daily bleeding since then. Around 1:30 AM on Wednesday morning, he developed acute worsening of the left ear pain that awoke him from sleep. He then tried to call the office of his ENT that morning but he was unable to be seen. He says that the pain became unbearable during the day so he went to the emergency room on Wednesday afternoon. Today, Steve says that his pain is much better compared to yesterday. He says that his pain is currently a 1/10 and localized to his ear without radiation down his neck. His pain level elevates to a 4-5/10 by a few hours after his last dose of pain medications, but he says it has been very bearable. He was able to sleep 4-5 hours last night uninterrupted without pain. He continues to endorse left facial paralysis and an inability to close his left eye. He also endorses complete left-sided hearing loss and tinnitus without bleeding or other discharge from the auditory canal. He denies any new symptoms or concerns at this time. When asked about the idea of smoking cessation, Steve said that it is not a topic that he would like to discuss and he is not interested in smoking cessation at this time. Review of Systems Constitutional: no fever, no chills, no body aches and no anorexia Eyes: Continued blurry vision in left eye Ear, Nose, Mouth, Throat: as per Subjective / HPI Respiratory: no cough and no dyspnea Cardiovascular: no chest pain, no palpitations and no lightheadedness Gastrointestinal: no abdominal pain, no nausea, no vomiting, no dysphagia and no change in stools Physical Exam Constitutional: WD/WN, vitals as above Eyes: PERRL, normal accommodation and EOM intact bilaterally ENMT: Ears: + hearing impairment (Left ear) and + TM abnormality (Ruptured left TM) Nose: nasal mucous membranes not dry and no facial tenderness Mouth: no oropharynx abnormality and oral mucous membranes not dry Neck: + anterior neck swelling (Left parotid) and + neck tender (Mild tenderness upon palpation of skin overlying the left parotid. ) Normal range of motion without discomfort Respiratory: normal respiratory effort, lungs clear to auscultation Cardiovascular: RRR, no murmur, no edema Gastrointestinal (Abdomen): normal bowel sounds, soft, nontender, no hepatosplenomegaly Skin: no rashes, warm and dry Neurologic: Cranial Nerves: EOM intact bilaterally, able to rotate head bilaterally and able to elevate shoulders bilaterally; + abnormal facial strength (Loss of left nasolabial fold. Unable to close left eye) and + hearing impairment Psychiatric: A+Ox3, euthymic affect Results & Data ([facility]) Vital Signs (Past 12 Hours) Vital Signs Temp Pulse Resp BP BP Pulse Ox 07/13/19 07:55 36.9 C 78 18 161/104 H 162/100 H 96 Laboratory Results Hgb 15.5 WBC 9.10 Sodium 138, Potassium 4.0 Resident Activity Tracking Resident Involvement: Resident Care Provided Care Provided: Adult [facility] Medicine
[2019-07-13] MEDS: OXYCODONE HCL IR 5 MG TAB (IMMEDIATE RELEASE) PO PRN ×2 (15:46→20:03)
[2019-07-13] MEDS: ACETAMINOPHEN 325 MG TAB PO PRN ×2 (15:49→20:04)
[2019-07-14] MEDS: OXYCODONE HCL IR 5 MG TAB (IMMEDIATE RELEASE) PO PRN ×3 (00:39→12:09)
[2019-07-14 06:58] LABS: Basophils # (auto) 0.03 K/uL (0-0.2); Basophils % (auto) 0.4 %; Eosinophils # (auto) 0.36 K/uL (0-0.5); Eosinophils % (auto) 4.9 %; Hematocrit (blood only) 44.4 % (42-52); Hemoglobin 15.5 g/dL (14.0-18.0); Immature Granulocytes # (auto) 0.01 K/uL (0.00-0.02); Immature Granulocytes % (auto) 0.1 %; Lymphocytes # (auto) 2.18 K/uL (1.2-3.4); Lymphocytes % (auto) 29.6 %; Mean Corpuscular Hgb Conc 34.9 g/dL (32-36); Mean Corpuscular Volume 94.5 fL (80-100); Mean Platelet Volume 10.1 fL (7.4-10.4); Monocytes # (auto) 0.61 K/uL (0.11-0.59); Monocytes % (auto) 8.3 %; Neutrophils # (auto) 4.18 K/uL (1.4-6.5); Neutrophils % (auto) 56.7 %; Platelet Count 219 K/uL (130-400); RDW Coefficient of Variation 12.9 % (11.5-14.5); White Blood Count 7.37 K/uL (4.8-10.8)
[2019-07-14 07:30] LABS: BUN Creatinine Ratio 9.5 (10-20); Calcium 9.6 mg/dl (8.5-10.1); Creatinine Clr Calc Pharmacy 104.1 ml/min; Est GFR (African American) 103.4; Est GFR (Non-African American) 89.2; Potassium 4.5 mmol/L (3.5-5.1)
[2019-07-14] MEDS: NICOTINE 21 MG/24 HR TDSY TD SCH (07:44)
[2019-07-14] MEDS: ARTIFICIAL TEARS OPL SCH (07:44)
[2019-07-14] MEDS: CIPRO 0.3%/DEXAMETHASONE 0.1% OTIC SUSP 7.5ML OT SCH (07:45)
[2019-07-14] MEDS: GABAPENTIN 300 MG CAP PO SCH (07:45)
[2019-07-14] MEDS: lisinopriL 10 MG TAB PO SCH (07:45)
[2019-07-14] MEDS: ACETAMINOPHEN 500 MG TAB PO SCH (07:46)
[2019-07-14 07:49] VITALS: BP 167/99; TEMP 97.5; O2SAT 97
--- NOTE | 2019-07-14 10:02 | Progress Notes ---
DATE: 07/13/2019 DIAGNOSES: 1. Left parotid mass. 2. Intractable left facial pain. 3. Left-sided hearing loss. SUBJECTIVE: The patient is a pleasant 49-year-old gentleman I met via consultation a day ago when he was admitted with intractable left-sided facial pain, brought on by enlarging parotid mass. Appreciate Dr. Best's input. Mapping is underway to begin radiation therapy. His pain seems to be relatively well controlled on the current oral opioid regimen. His appetite remains robust. Clinically, actually feels much better since admission. I believe a biopsy is scheduled for today and thereafter he could be sent home and reconvene at [facility] as outpatient to establish a therapeutic plan. Nursing reports no overnight difficulties. OBJECTIVE: GENERAL: A very pleasant 49-year-old gentleman, in no acute distress. VITAL SIGNS: Temperature 36.4, pulse 85, respiratory rate 18, blood pressure 167/69. SKIN: Without rash or lesion. HEENT: Enlarged left parietal mass, palpable, unchanged. NECK: Supple. HEART: Regular rate and rhythm. LUNGS: Clear to auscultation bilaterally. ABDOMEN: Soft, nontender, nondistended. EXTREMITIES: No clubbing, cyanosis or edema. NEUROLOGICAL: Grossly intact. LABORATORY DATA: WBC count 7370, hemoglobin 15.5, platelet count 219,000. Sodium 139, potassium 4.5, chloride 107, BUN 9, creatinine 1. IMPRESSION: 1. Left parotid mass. 2. Intractable left-sided facial pain. 3. Left-sided hearing loss, both contributable to #1. PLAN: The patient looks a lot better today. Establish a prudent oral opioid regimen in preparation for discharge. Biopsy will be done today. Anticipate having a confirmed diagnosis mid next week and; therefore, we will plan to see him at [facility] thereafter. Dr. Best will arrange appropriate followup for radiation. We will officially sign off at this point. If there are any concerns, contact me by phone.
--- NOTE | 2019-07-14 10:26 | Discharge Summary ---
Date of Service July 14, 2019 Admission HPI Per Admitting Provider Mr. 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 and noticed a lump on the side of his face near his jaw. His Frederick's palsy persisted and he started to have some discomfort. Two weeks ago he went to the ENT who believed he had a mass and he needed to have scan and biopsy. He, is here today for extreme pain that started around 1:30 am this morning woke him up from a sleep. Patient is having the worst pain of his life through his head. He has an obstructed left nares and has been having bleeding from his left ear since ENT looked at it. Hypertension in the past, not on high blood pressure medication, uses medical marijuana for sleep and appetite. Smoker, just over a pack a day started at about 18. Lives with youngest daughter and two children. Has 6-7 drinks a night about seven nights a week. 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 secondary to these. Dr. Lilly is primary doctor. Admission Exam Per Admitting Provider Constitutional: Mr Steve Rayo is a 49 year old man appearing stated age in obvious acute distress secondary to head/face pain. Every few minutes grabbing at his jaw ear area on the left. Eyes: EOMMI patient with some facial nerve palsy, unable to close left eye completely ENMT: Erythematous Left TM with bloody discharge present, nares appearing normal, dentition carious, mass palpable around left parotid region by posterior mandible on left, this area is tender to palpation Respiratory: Lungs clear to auscultation bilaterally, no increased work of breathing, no wheezing, stridor Cardiovascular: Regular rate regular rhythm heart sounds dual on auscultation, peripheral pulses intact, no lower limb edema GI: Abdomen soft nontender Neuro: Mild left fifth CN paralysis on exam, No other neurologic deficit detect II-Iv and -XII assessed and intact with possible exception of some increased pain in distribution of trigeminal nerve. Principal Diagnosis Mass of left parotid gland Discharge Exam Constitutional WD/WN, vitals as above Eyes PERRL, conjunctivae normal, anicteric sclerae ENMT Left sided facial droop. Left facial swelling. Respiratory normal respiratory effort, lungs clear to auscultation Cardiovascular RRR, no murmur, no edema Gastrointestinal (Abdomen) normal bowel sounds, soft, nontender, no hepatosplenomegaly Skin no rashes, warm and dry Discharge Data Allergies Allergy/AdvReac Type Severity Reaction Status Date / Time varenicline Allergy Intermediate RASH Verified 07/11/19 16:32 Consultations 07/11/19 19:09 ED Decision to Admit Stat 07/11/19 21:34 Consult Oncology Stat 07/14/19 09:19 Consult [facility] mass spectrometry manager Routine Ordered Studies 07/11/19 16:25 CT soft tissue neck wo/w con Stat 07/13/19 13:27 CT guide rad therapy head Routine Hospital Course (1) Mass of left parotid gland: Mr. Rayo is a 49-year-old male with a 6 month history of progressive left-sided ear pain and facial swelling who presented to the emergency department on 07/11/19 secondary to acute worsening of his ear pain. His presentation and initial head and neck CT findings are concerning for a malignant etiology. Left Parotid Mass: -Evaluated by ENT two weeks ago, which raised concern for malignancy. ENT ordered head/neck CT and FNA of the left parotid at that time, which was scheduled for 07/12/19. However, he was unable to manage his pain as an outpatient, which led to inpatient admission on 07/11/19. 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 -Pathology consulted - FNA of mass performed prior to d/c -Radiation-Oncology consulted and will f/u with patient on d/c. Outpatient PET scan arranged. -Patient will follow up with Dr. Garcia as an outpatient to discuss therapeutic approach based on biopsy and PET scan findings. If the patient does has distant metastatic disease confirmed on PET scan, palliative external beam radiation therapy followed by systemic therapy of the left parotid mass and C3 vertebral body is recommended. If the scan does not confirm metastatic disease, definitive chemotherapy and radiation is recommended. Facial Pain: -The patient has severe left ear pain with radiation to the left neck, which was the primary reason for his original presentation to the emergency department. - Perforated left tympanic membrane and parotid mass are likely both contributing to the patient's pain. -Pain controlled with regimen of: -Cirpofloxacin/Dexamethasone 4 drops BID in left ear -Gabapentin 300 mg PO TID for management of neuropathic pain -Oxycodone 5 mg PO Q4H PRN. Patient reports he has a medicinal marijuana card and will trial this for his pain as opposed to opioids. 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 -Recommended artificial tears 2 drops OPL BID - pt declined Hypertension -The patient's blood pressure has been consistently elevated during admission, ranging from 152-188 systolic and 95-126 diastolic. Although pain and anxiety related to the patient's current presentation are most likely contributing to these readings to some extent, underlying essential hypertension is also present and should be treated pharmacologically. -Started Lisinopril 10 mg PO QAM. Follow up as an outpatient for proper titration to adequate dose. Smoking History -The patient has a 30 pack-year history and currently smokes 1-2 packs per day. -Topic of smoking cessation addressed and patient declines further discussion at this time. Excessive Alcohol use -The patient states that he currently consumes 5-6 beers per day on average. -no signs or symptoms of withdrawal during admission Total Time Total Time Spent Total Time Spent (In Minutes): See attending addendum Discharge Plan Discharge Items Patient Disposition: Home - Self-Care Reason For Visit: HEAD PAIN Discharge Diagnosis: Facial swelling and pain Condition on Discharge: Fair Activity: Resume your previous activity Non-emergency contact: Primary Care Provider Call non-emergency contact if: you have any medication questions, your pain is not controlled and your temperature is above 101.5 Follow-up/Referrals: Pro,Ceasar New MD [Primary Care Provider] - 07/18/19 11:00 am Diet: Regular Addtl Attending Provider Instructions: Mr. Rayo, bassam were seen at [facility] due to left sided facial swelling. This is concerning for an expanding mass in your salivary gland (likely your parotid gland). You had a biopsy done, and the results of this are pending. These results will help guide treatment going forward. You met Dr. Garcia, an oncologist, and Dr. Tiffani Best, a radiation oncologist, who will be following up with you in clinic to discuss further management. We will be contacting you in the near future to schedule a PET scan. For your pain, we recommend taking 1g of Tylenol every 8 hours, and then using 1 tablet of oxycodone as needed every 4-6 hours for breakthrough pain. You can also take ibuprofen, 400-600mg every 6-8 hours as needed for pain as well. We also prescribed a medication called gabapentin, which helps with nerve related pain. Please do not drive or operate heavy machinery after taking the oxycodone as this can make you drowsy. Your blood pressure was found to be significantly elevated while in the hospital. We have started you on a low dose blood pressure medication called lisinopril. Please take one pill a day. Your primary care provider can adjust this medication if needed. Dr. Parker Best is not available in clinic next week, and therefore we have set an appointment up for you with Dr. Rodriguez on July 19 at 12:50PM. Their office is located in [address], [address]. The phone number, should you need to change this appointment, is [phone]. Pending Studies at Discharge: Yes Studies:: Pathology results of fine needle aspirate Stand-Alone Forms: My [facility], Opioid Pain Management, Smoking Cessation Medications and DC Order Prescriptions: New ondansetron HCl [Zofran] 4 mg tablet 4 mg PO TID PRN (Reason: nausea and vomiting) 5 Days Qty: 15 RF: 0 oxycodone [Roxicodone] 5 mg tablet 5 mg PO Q8H PRN (Reason: pain) Qty: 15 RF: 0 lisinopril 10 mg Tablet 10 mg PO QAM Qty: 30 RF: 0 gabapentin 300 mg Capsule 300 mg PO TID 30 Days Qty: 90 RF: 0 Continued Ciprodex 0.3-0.1 % drops,suspension 4 drops OT BID Qty: 7.5 RF: 2 meloxicam 15 mg tablet 15 mg PO DAILY RF: 0 Discharge Orders: Discharge Order (Routine); Ordered 07/14/19 Ordered By: Florence Huddleston/Other Patient Handouts: Radiation Therapy, Radiation Therapy Tx, Radiation Therapy Side Effects, Radiation Therapy Daily Life, PET Scan, Hypertension Dc Admission Data Admit Date/Time: 07/11/19 20:20 Attending Provider: Tawanna Levin Admit Provider: Gustavo Knox Primary Care Provider: Ceasar Lilly Other Providers: Yolanda Damon James V. Other Interventions: Discharge Summary Assessment (RN) Last Done: 07/14/19 12:11 DC Date/Time DO NOT enter until pt leaves facility: 07/14/19 12:34 Supervising Physician Co-Signing Physician Notes Resident Physician Supervision Note: I independently interviewed and examined the patient and verified the flores history and physical, reviewed labs and image studies, discussed the case with the resident Dr. Rodriguez and agree with the findings and care plan. Resident Activity Tracking Resident Involvement: Resident Care Provided Care Provided: Adult Hospital Medicine
[2019-07-14 12:12] VITALS: PULSE 69
== END 2019-07-14 12:34 | disposition home or self-care (01) | DRG 147 ==
LOC: ED 16:07 → 3W 20:20 → SUATTDRO 20:20 → 3W 21:18